=== PATIENT | female | born 1955 | race Caucasian/White ===

== ENCOUNTER 2016-12-19 07:33 | Inpatient (IN) | payer OTHER ==
[2016-11-13 14:51] VITALS: BMI 35.0
--- NOTE | 2016-11-13 15:35 | PAT Medication Instructions ---
Service Date Nov 13, 2016. Current Home Medication List Amitriptyline Hcl (Elavil), 50 MG PO HS Cholecalciferol (Vitamin D3), 1 TAB PO BID Diclofenac (Voltaren), 75 MG PO BID Eletriptan (Relpax), 40 MG PO DIRECTED Famotidine (Pepcid), 40 MG PO HS Lovastatin (Mevacor), 10 MG PO HS Montelukast Sodium (Montelukast Sodium), 1 TAB PO HS Omeprazole (Prilosec), 40 MG PO QAM [Melatonin], 50 MG PO HS [Nasonex [place]], 2 SPRAYS YONG PRN Medication Instructions For Your Scheduled Surgery Eletriptan (Relpax), 40 MG PO DIRECTED (only takes with migraines) - Hold the following medications 7-10 days prior to surgery per surgeon instructions: Diclofenac (Voltaren), 75 MG PO BID - Hold the following medications the morning of surgery: Cholecalciferol (Vitamin D3), 1 TAB PO BID - Take the following medications the morning of surgery with a sip of water: Nasonex [place] 2 SPRAYS YONG PRN Omeprazole (Prilosec), 40 MG PO QAM - Take the following medications as scheduled the night before surgery: Melatonin 50 MG PO HS Nasonex [place] 2 SPRAYS YONG PRN Montelukast Sodium (Montelukast Sodium), 1 TAB PO HS Lovastatin (Mevacor), 10 MG PO HS Famotidine (Pepcid), 40 MG PO HS Amitriptyline Hcl (Elavil), 50 MG PO HS If you have any questions please call us at [phone] or [phone] ( Carla) or [phone]
--- NOTE | 2016-11-13 16:02 | DIAGNOSTIC IMAGING REPORT ---
CHEST PREADMISSION(PA/LAT) CLINICAL HISTORY: Preoperative chest. Degenerative arthritis. Smoker. Cough. COMPARISON STUDY: No previous studies for comparison. FINDINGS: The cardiac and mediastinal contours are normal. There is no evidence of focal pulmonary consolidation. There is no evidence of failure. No pleural effusions are visualized.[ IMPRESSION: No active disease in the chest. Electronically signed by: Hayden Savage M.D. 11/13/2016 4:01 PM
[2016-11-13 16:35] LABS: BASO % 0.5 %; BASO ABS # 0.05 K/uL (0-0.2); COMPLETE YES; EOS % 4.3 %; HEMATOCRIT 43.9 % (37-47); IG% 0.2 %; LYMPH % 31.2 %; LYMPH ABS # 2.92 K/uL (1.2-3.4); MEAN CELL VOLUME 90.3 fL (80-100); MEAN CORPUSCULAR HEMOGLOBIN 30.2 pg (25-34); MEAN CORPUSCULAR HGB CONC 33.5 g/dl (32-36); MEAN PLATELET VOLUME 10.7 fL (7.4-10.4); MONO % 6.8 %; PLATELET COUNT 414 K/uL (130-400); RED BLOOD COUNT 4.86 M/uL (4.2-5.4); WHITE BLOOD COUNT 9.37 K/uL (4.8-10.8)
[2016-11-13 16:43] LABS: URINE APPEARANCE CLEAR (CLEAR); URINE BILIRUBIN NEG (NEG); URINE COLOR DK YELLOW; URINE EPITHELIAL CELL AUTO >30 /lpf (0-5); URINE NITRITE NEG (NEG); URINE PH 5.5 (4.5-7.5); URINE SPECIFIC GRAVITY 1.019 (1.000-1.030); UROBILINOGEN NEG (NEG); ZZUR CULT IF INDIC CLEAN CATCH NO
[2016-11-13 16:46] LABS: MANUAL MICROSCOPIC REQUIRED? NO; REVIEW REQ? NO
[2016-11-13 16:49] LABS: PARTIAL THROMBOPLASTIN RATIO 1.3; PROTHROMBIN TIME (PATIENT) 10.6 SECONDS (9.0-12.0)
[2016-11-13 16:57] LABS: BUN/CREATININE RATIO 19.5 (10-20); CREATININE 0.99 mg/dl (0.60-1.20); POTASSIUM 3.7 mmol/L (3.5-5.1)
[2016-11-14 05:57] LABS: ESTIMATED AVERAGE GLUCOSE 134 mg/dl; HA1C FLAG Normal (Normal)
--- NOTE | 2016-12-18 13:38 | HISTORY & PHYSICAL EXAMINATION ---
DATE OF ADMISSION: 12/19/2016 CHIEF COMPLAINT: Chronic right knee pain. HISTORY OF PRESENT ILLNESS: This is a 61-year-old female patient of Dr. Felix, complaining of chronic right knee pain, longstanding, now progressively getting worse. The patient has failed conservative treatment including anti-inflammatories and intraarticular injections. She has also used a brace for a number of months. She has been diagnosed with end-stage osteoarthritis per clinical and radiographic exams. The patient has increased pain with weightbearing activities and her pain does interfere with her activities of daily living. PAST MEDICAL HISTORY: COPD, snoring with no history of sleep apnea, osteoarthritis, obesity, and dental issues. SOCIAL HISTORY: A pack per day smoker for 45 years. No alcohol use. PAST SURGICAL HISTORY: Tubal ligation, carpal tunnel syndrome, back surgeries and tonsillectomy. FAMILY HISTORY: Noncontributory. REVIEW OF SYSTEMS: The patient complains of chronic right knee pain. Otherwise, denies any shortness of breath, chest pain, nausea, vomiting or any other joint complaints. MEDICATIONS: Diclofenac 75 mg daily, amitriptyline 50 mg at bedtime, lovastatin 10 mg at bedtime, montelukast 10 mg at bedtime, melatonin 50 mg at bedtime, vitamin D 1000 mg b.i.d., Nasonex spray as needed daily, Zantac daily, omeprazole 40 mg daily, and famotidine 40 mg at bedtime. ALLERGIES: INCLUDE AUGMENTIN AND CODEINE, WHICH CAUSE NAUSEOUSNESS. PHYSICAL EXAMINATION: GENERAL: Well-developed and well-nourished 61-year-old female in no acute distress. She is alert and oriented x3 and pleasant. HEENT: Normocephalic and atraumatic. Extraocular motions are intact. Pupils are equal and reactive to light. HEART: Regular rate and rhythm. No murmurs appreciated. LUNGS: Clear. ABDOMEN: Soft and nontender. Bowel sounds present. EXTREMITIES: Right knee reveals a mild effusion with medial joint line tenderness. She has a varus deformity and limited range of motion of 0-120 degrees. She has 5/5 strength. NEUROLOGIC: Neurovascularly, she is intact in her right lower extremity. DIAGNOSES: Right knee end-stage osteoarthritis, chronic obstructive pulmonary disease, and snoring with no history of sleep apnea, osteoarthritis, obesity and dental issues. PLAN: The patient was advised of her diagnoses. Indications, risks, benefits, and postop course have all been reviewed. The patient wishes to proceed with an elective right total knee arthroplasty. Necessary consent forms, preoperative testing and clearances will be obtained.
[~2016-12-19] VITALS: Ht 165.1 cm; Wt 97.8 kg
[2016-12-19] MEDS: TRANEXAMIC ACID INJ 1,000 MG in SODIUM CHLORIDE 0.9% 100ML 100 ML IV SCH ×2 (06:30→11:46)
[~2016-12-19 07:33] MED LIST: ACETAMINOPHEN 500 MG TAB PO SCH; AMT50 PO; BUPIVACAINE 0.5 % 5 MG/1 ML PF 10ML VIAL ONE; CHOL1000 PO; CeleBREX 200 MG CAP PO SCH; DEXAMETHASONE 4 MG TAB PO SCH; DICL-201 PO; ELET40TA PO; FAMO40TA6 PO; FAMOTIDINE 20 MG TAB PO SCH; GABAPENTIN 300 MG CAP PO SCH; LACTATED RINGER'S 1000ML 1,000 ML IV SCH; LACTATED RINGER'S 1000ML IV SCH; LACTATED RINGER'S 500 ML IV SCH; LOVA10TA3 PO; MELA3TAB7 PO; METOCLOPRAMIDE HCL 10 MG TAB PO SCH; MONT1TAB5 PO; NASONEX SPRAY NAE; OMEP40CA PO; ROPIVACAINE 5MG/ML 30 ML 150 MG, BUPIVACAINE/EPINEPHR 0.5% MPF 30 ML, KETOROLAC TROMETH... INFIL SCH
[2016-12-19] MEDS: VANCOMYCIN INJ 1,500 MG in SODIUM CHLORIDE 0.9% 500ML 500 ML IV SCH ×2 (08:02→11:42)
[2016-12-19 08:05] VITALS: BP 135/87; PULSE 105; TEMP 36.9; O2SAT 93; Ht 165.1 cm; Wt 97.8 kg
--- NOTE | 2016-12-19 08:59 | History & Physical Bridge Note ---
H&P Re-Evaluation Bridge Note: I have examined the patient, reviewed the History & Physical and in the interval since the performance of the History & Physical I have noted the following changes of clinical significance: No changes noted
[2016-12-19] MEDS ORDERED: MIDAZOLAM HCL 1 MG/ML 2ML VIAL ONE ×2 (10:17→13:28)
[2016-12-19] MEDS ORDERED: FENTANYL CITRATE INJ 50 MCG/1 ML 2 ML VIAL ONE (10:17)
[2016-12-19] MEDS ORDERED: ORTHO JOINT ANESTHETIC ONE (11:16)
[2016-12-19] MEDS ORDERED: PHENYLEPHRINE 100MCG/ML 5ML SYR ONE (13:05)
[2016-12-19] MEDS ORDERED: ESMOLOL HCL 10 MG/ML 10 ML VIAL ONE (13:05)
[2016-12-19] MEDS ORDERED: ONDANSETRON INJ 2 MG/ML 2 ML VIAL IV PRN ×2 (13:15→14:30)
[2016-12-19] MEDS ORDERED: FENTANYL CITRATE INJ 50 MCG/1 ML 2 ML VIAL IV PRN (13:15)
[2016-12-19] MEDS ORDERED: EpHEDrine SULFATE INJ 50 MG/ML AMP IV PRN (13:15)
[2016-12-19] MEDS ORDERED: ATROPINE SULFATE 0.1 MG/ML 5ML SYR IV PRN (13:15)
[2016-12-19] MEDS ORDERED: POVIDONE-IODINE OP SOLN 30 ML BTL TOP ONE (13:43)
[2016-12-19] MEDS ORDERED: BACITRACIN 50000 UNIT VIAL IR ONE (13:50)
--- NOTE | 2016-12-19 13:53 | [facility] Operative Report ---
Operative Report Operative Date Dec 19, 2016. Pre-Operative Diagnosis Right Knee, End Stage Osteoarthritis Post-Operative Diagnosis same Procedure(s) Performed right total knee replacement Surgeon Dr. Graham Felix Item Processor Surgeon(s) Gómez Rodriguez PA-C Estimated Blood Loss 5ml Findings varus grade 4 medial and lateral patellar djd Specimens A.) Right Knee Bone and Tissue Fragments Drains 2 HV Anesthesia spinal sedation and regional and orthomix Complication(s) None Disposition Recovery Room / PACU Indications end stage djd bilateral staged tka I attest to the content of the Intraoperative Record and any orders documented therein. Any exceptions are noted below.
[2016-12-19] MEDS ORDERED: DiphenhydrAMINE HCL 50 MG/ML VIAL IV PRN (14:30)
[2016-12-19] MEDS ORDERED: MAGNESIUM HYDROXIDE SUSP 30 ML UDC PO PRN (14:30)
[2016-12-19] MEDS ORDERED: ALUMINUM/MAGNESIUM/SIMETH (MAALOX MAX) 30 ML UDC PO PRN (14:30)
[2016-12-19] MEDS ORDERED: ZOLPIDEM TARTRATE 5 MG TAB PO PRN (14:30)
[2016-12-19] MEDS ORDERED: BISACODYL 10 MG SUPP PR PRN (14:30)
--- NOTE | 2016-12-19 14:35 | Anesthesiology Progress Note ---
Anesthesia Post Op Note Date & Time Dec 19, 2016 at 14:35 Vital Signs Pain Intensity: 0 Vital Signs Past 12 Hours Date Time Temp Pulse Resp B/P Pulse Ox O2 Delivery O2 Flow Rate FiO2 12/19/16 14:20 Nasal Cannula 3 12/19/16 14:10 36.6 110 16 120/63 97 Mask 10 12/19/16 08:05 36.9 105 20 135/87 93 Room Air Notes Mental Status: alert / awake / arousable, participated in evaluation Pt Amnestic to Procedure: Yes Nausea / Vomiting: adequately controlled Pain: adequately controlled Airway Patency, RR, SpO2: stable & adequate BP & HR: stable & adequate Hydration State: stable & adequate Neuraxial Anesthesia: was administered, sensory block is resolving Anesthetic Complications: no major complications apparent
--- NOTE | 2016-12-19 15:13 | DIAGNOSTIC IMAGING REPORT ---
RIGHT KNEE 1 OR 2 VIEWS ROUTINE CLINICAL HISTORY: Postoperative evaluation. COMPARISON: None FINDINGS: Alignment of the total right knee arthroplasty is anatomic. There is no fracture or unexpected radiopaque foreign body. Drains and skin chrystal are present. IMPRESSION: Expected findings following total right knee arthroplasty. Electronically signed by: Anthony Scott M.D. 12/19/2016 3:11 PM Dictated Date/Time: 12/19/2016 3:11 PM
[2016-12-19 15:40] VITALS: BP 127/78; PULSE 106; TEMP 36.4; O2SAT 95
[2016-12-19] MEDS ORDERED: MoRPHine SULFATE 4 MG/ML 1 ML CARP\\VIAL IV PRN (16:00)
[2016-12-19] MEDS ORDERED: MoRPHine SULFATE 10 MG/ML CARP/VIAL IV PRN (16:00)
[2016-12-19 16:08] VITALS: BP 153/90; PULSE 104; TEMP 36.6; O2SAT 96
[2016-12-19] MEDS: D5W AND 1/2NSS + 20MEQ KCL 1,000 ML IV SCH (16:26)
[2016-12-19 16:42] VITALS: BP 133/82; PULSE 96; TEMP 36.5; O2SAT 96
[2016-12-19] MEDS: FERROUS GLUCONATE 324 MG TAB PO SCH (17:53)
[2016-12-19] MEDS: KETOROLAC TROMETHAMINE 30 MG/ML VIAL IV. SCH ×2 (17:54→23:46)
[2016-12-19 18:40] VITALS: BP 162/81; PULSE 105; TEMP 36.7; O2SAT 92
--- NOTE | 2016-12-19 20:11 | Medical Consult ---
Consultation Date of Consultation: Dec 19, 2016. Attending Physician: Graham Felix M.D. Reason for Consultation: Medical management History of Present Illness 61 yo female s/p right TKA today by Dr. Felix. No complications, minimal blood loss. Had been dealing with chronic right knee pain for some time, failed conservative therapy. Has a medical history of COPD but she only uses a rescue inhaler and hardly ever needs it. She denies reflux. Admits to high cholesterol but it is well controlled on statin. Overall she feels quite well after surgery, right knee pain is minimal at the time and she has come off her oxygen. Eating well. Past Medical/Surgical History PAST MEDICAL HISTORY: COPD, snoring with no history of sleep apnea, osteoarthritis, obesity, GERD, hyperlipidemia PAST SURGICAL HISTORY: Tubal ligation, carpal tunnel syndrome, back surgeries and tonsillectomy. Family History Mother: DM, CAD with CABG Father: CAD with CABG Social History Smoking Status: Current Every Day Smoker Allergies Coded Allergies: Amoxicillin (Verified Adverse Reaction, Unknown, NAUSEA, 12/19/16) Clavulanic Acid (Verified Adverse Reaction, Unknown, NAUSEA, 12/19/16) Codeine (Verified Adverse Reaction, Unknown, NAUSEA, 12/19/16) Home Medications MEDICATIONS: Diclofenac 75 mg daily, amitriptyline 50 mg at bedtime, lovastatin 10 mg at bedtime, montelukast 10 mg at bedtime, melatonin 50 mg at bedtime, vitamin D 1000 mg b.i.d., Nasonex spray as needed daily, Zantac daily, omeprazole 40 mg daily, and famotidine 40 mg at bedtime. Current Inpatient Medications Current Inpatient Medications Medications (Trade) Dose Ordered Sig/Hillary Route Start Time Stop Time Status Last Admin Dose Admin Lactated Ringer's 1,000 ml @ 60 mls/hr [id number] IV 12/19/16 06:00 12/19/16 22:39 Lactated Ringer's (Lr 1000ml) 1,000 ml @ 15 mls/hr Q24H IV 12/19/16 06:00 12/20/16 05:59 12/19/16 07:58 15 MLS/HR Amitriptyline HCl (Elavil Tab) 50 mg HS PO 12/19/16 21:00 01/18/17 20:59 Cholecalciferol (Vitamin D Tab) 1,000 inter.unit BID PO 12/19/16 21:00 01/18/17 20:59 Montelukast Sodium (Singulair Tab) 10 mg HS PO 12/19/16 21:00 01/18/17 20:59 Miscellaneous Information (Order Awaiting Action) 1 ea QS N/A 12/19/16 16:00 01/18/17 15:59 Lovastatin (Mevacor Tab) 10 mg PM PO 12/19/16 21:00 01/18/17 20:59 Pantoprazole Sodium (Protonix Tab) 40 mg QAM PO 12/20/16 09:00 01/19/17 08:59 Fluticasone Propionate (Flonase Nasal [place]) 2 sprays DAILY PRN NA 12/20/16 09:00 01/19/17 08:59 Morphine Sulfate 2 mg 2 mg Q4HWA PRN IV 12/19/16 14:30 01/02/17 14:29 Potassium Chloride/Dextrose/ Sod Cl 1,000 ml @ 100 mls/hr Q10H IV 12/19/16 16:15 12/20/16 14:15 12/19/16 16:26 100 MLS/HR Vancomycin HCl/ Sodium Chloride (Vancomycin Inj/ Nss 500ml) 530 ml @ 195 mls/hr TODAY@2300 IV 12/19/16 23:00 12/20/16 01:44 Ketorolac Tromethamine (Toradol Inj) 30 mg Q6H IV. 12/19/16 18:00 12/20/16 12:01 12/19/16 17:54 30 MG Oxycodone HCl (Roxicodone Immediate Rel Tab) 1 TABLET FOR PAIN RATING... Q4H PRN PO 12/19/16 14:30 01/02/17 14:29 Oxycodone HCl (Oxycontin Tab) 10 mg Q12 PO 12/19/16 21:00 01/02/17 20:59 Acetaminophen (Tylenol Tab) 1,000 mg Q8H PO 12/19/16 22:00 01/18/17 14:29 Magnesium Hydroxide (Milk Of Magnesia Susp) 30 ml Q6H PRN PO 12/19/16 14:30 01/18/17 14:29 Bisacodyl (Dulcolax Supp) 10 mg DAILY PRN MT 12/19/16 14:30 01/18/17 14:29 Senna (Senokot Tab) 17.2 mg HS PO 12/19/16 21:00 01/18/17 20:59 Docusate Sodium (coLACE CAP) 100 mg BID PO 12/19/16 21:00 01/18/17 20:59 Diphenhydramine HCl (Benadryl Inj) 25 mg Q8H PRN IV 12/19/16 14:30 01/18/17 14:29 Al Hydrox/Mg Hydrox/Simethicone (Maalox Max Susp) 15 ml Q4H PRN PO 12/19/16 14:30 01/18/17 14:29 Zolpidem Tartrate (Ambien Tab) 5 mg HSZ PRN PO 12/19/16 14:30 01/18/17 14:29 Multivitamins (Multivitamin Tab) 1 tab QAM PO 12/20/16 09:00 01/19/17 08:59 Ondansetron HCl (Zofran Inj) 4 mg Q6H PRN IV 12/19/16 14:30 01/18/17 14:29 Ferrous Gluconate (Ferrous Gluconate Tab) 324 mg TIDM PO 12/19/16 17:45 01/18/17 17:59 12/19/16 17:53 324 MG Aspirin (Ecotrin Tab) 81 mg BID PO 12/19/16 21:00 01/18/17 20:59 Morphine Sulfate (MoRPHine SULFATE INJ) 4 mg Q4HWA PRN IV 12/19/16 16:00 01/02/17 15:59 Morphine Sulfate (MoRPHine SULFATE INJ) 6 mg Q4HWA PRN IV 12/19/16 16:00 01/02/17 15:59 Review of Systems Constitutional: No chills, No fatigue, No fever, No problem reported, No sweats , No weakness, No weight loss Eyes: No diplopia, No discharge, No eye pain, No problem reported, No redness, No worsening of vision ENT: No dental problems, No hearing loss, No nasal symptoms, No problem reported, No sore throat, No tinnitus, No trouble swallowing, No unusual epistaxis Respiratory: No cough, No dyspnea at rest, No dyspnea on exertion, No hemoptysis, No problem reported, No shortness of breath, No sputum, No wheezing Cardiovascular: No PND, No chest pain, No claudication, No edema, No orthopnea , No palpitations, No problem reported Abdomen: No GI bleeding, No constipation, No diarrhea, No nausea, No pain, No problem reported, No vomiting Musculoskeletal: + joint pain (right knee), No calf pain, No muscle pain, No problem reported, No swelling Genitourinary - Female: No dysuria, No urinary frequency, No urinary incontinence, No urinary urgency Neurologic: No balance problems, No memory loss, No numbness/tingling, No paralysis, No problem reported, No vertigo, No weakness Psychiatric: No anhedonism, No anxiety, No depression symptoms, No insomnia, No problem reported, No substance abuse Endocrine: No excessive thirst, No excessive urination, No fatigue, No problem reported Hematologic / Lymphatic: No abnormal bleeding/bruising, No clotting problems, No night sweats, No problem reported, No swollen lymph nodes Integumentary: No bleeding, No color change, No itch, No new/changing skin lesions, No problem reported, No rash Allergic / Immunologic: No environmental allergies, No food allergies, No frequent infections, No hives, No pet sensitivities, No poor healing, No problem reported, No prolonged convalescence, No seasonal allergies Physical Exam Date Time Temp Pulse Resp B/P Pulse Ox O2 Delivery O2 Flow Rate FiO2 12/19/16 18:40 36.7 105 18 162/81 92 Room Air 12/19/16 16:42 36.5 96 18 133/82 96 Nasal Cannula 3.0 12/19/16 16:41 18 12/19/16 16:08 36.6 104 18 153/90 96 Nasal Cannula 3.0 12/19/16 16:00 Nasal Cannula 2.0 12/19/16 16:00 Nasal Cannula 2.0 12/19/16 15:40 36.4 106 18 127/78 95 12/19/16 15:30 36.7 107 16 124/79 95 Nasal Cannula 3 12/19/16 15:29 124/79 12/19/16 15:27 114 18 92 12/19/16 15:27 112 18 12/19/16 15:22 108 19 12/19/16 15:22 107 19 93 12/19/16 15:17 108 19 12/19/16 15:17 108 19 97 12/19/16 15:13 143/77 12/19/16 15:12 106 18 12/19/16 15:12 105 18 95 12/19/16 15:07 109 17 92 12/19/16 15:07 109 17 12/19/16 15:04 124/78 12/19/16 15:02 109 16 92 12/19/16 15:02 110 16 12/19/16 15:01 106 18 93 12/19/16 15:01 106 18 12/19/16 14:58 122/87 12/19/16 14:56 105 17 12/19/16 14:56 105 17 94 12/19/16 14:53 134/82 12/19/16 14:51 110 18 12/19/16 14:51 108 18 94 12/19/16 14:48 143/88 12/19/16 14:46 110 17 93 12/19/16 14:46 110 17 12/19/16 14:43 129/81 12/19/16 14:41 115 19 12/19/16 14:41 121 19 91 12/19/16 14:40 36.5 12/19/16 14:35 107 17 93 12/19/16 14:35 109 17 12/19/16 14:33 123/77 12/19/16 14:30 105 19 96 12/19/16 14:30 106 19 12/19/16 14:28 152/69 12/19/16 14:25 105 21 96 12/19/16 14:25 106 21 12/19/16 14:23 131/72 12/19/16 14:20 114 20 93 12/19/16 14:20 Nasal Cannula 3 12/19/16 14:20 114 20 12/19/16 14:18 123/67 12/19/16 14:15 109 23 98 12/19/16 14:15 109 23 12/19/16 14:13 119/64 12/19/16 14:11 120/63 12/19/16 14:10 115 12/19/16 14:10 115 94 12/19/16 14:10 36.6 110 16 120/63 97 Mask 10 12/19/16 08:05 36.9 105 20 135/87 93 Room Air General Appearance: no apparent distress, + obese Head: normocephalic, atraumatic Eyes: normal inspection, EOMI, sclerae normal ENT: normal ENT inspection, hearing grossly normal, pharynx normal Neck: supple, no adenopathy, no JVD, trachea midline Respiratory/Chest: chest non-tender, lungs clear, normal breath sounds, no respiratory distress, no accessory muscle use Cardiovascular: regular rate, rhythm, no edema, no gallop, no JVD, no murmur, normal peripheral pulses Abdomen/GI: normal bowel sounds, non tender, soft, no organomegaly Back: normal inspection, no CVA tenderness, no muscle spasm, normal range of motion Extremities/Musculoskelatal: no calf tenderness, normal capillary refill, no pedal edema, + pertinent finding (right knee tender, immobilized) 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 Felix - s/p right TKA: pain control, DVT prophylaxis, activity level and d/c planning per orthopedics encouraged use of incentive spirometer to open up atelectactic areas and improve oxygenation monitor for return of bowel function, stay hydrated, active - COPD: lungs clear, does not use inhalers, can use nebulizers if needed while hospitalized - GERD: continue PPI and H2 abdoulaye - Hyperlipidemia; statin therapy check labs in the AM, if labs and vitals stable, should sign off tomorrow
[2016-12-19] MEDS: LOVASTATIN 20 MG TAB PO SCH (20:47)
[2016-12-19] MEDS: AMITRIPTYLINE HCL 50 MG TAB PO SCH (20:47)
[2016-12-19] MEDS: ASPIRIN 81 MG ECTAB PO SCH (20:47)
[2016-12-19] MEDS: DOCUSATE SODIUM 100 MG CAP PO SCH (20:47)
[2016-12-19] MEDS: SENNA 8.6 MG TAB PO SCH (20:47)
[2016-12-19] MEDS: OXYCODONE HCL 10 MG TABCR (OXYCONTIN) PO SCH (20:47)
[2016-12-19] MEDS: CHOLECALCIFEROL 1000 INTER.UNIT TAB PO SCH (20:47)
[2016-12-19] MEDS: MONTELUKAST SOD 10 MG TAB PO SCH (20:47)
[2016-12-19] MEDS: NICOTINE 14 MG/24 HR TDSY TD SCH (21:20)
[2016-12-19] MEDS: ACETAMINOPHEN 500 MG TAB PO SCH (21:41)
[2016-12-19] MEDS ORDERED: VANCOMYCIN INJ 1,500 MG in SODIUM CHLORIDE 0.9% 500ML 500 ML IV SCH (23:00)
[2016-12-20] VITALS (7 sets, daily range): BP systolic 121–151; BP diastolic 62–85; PULSE 71–94; TEMP 36.5–36.8; O2SAT 92–97
--- NOTE | 2016-12-20 01:02 | OPERATIVE REPORT ---
DATE OF OPERATION: 12/19/2016 INDICATION FOR PROCEDURE: The patient is a 61-year-old female with progressive bilateral knee osteoarthritis. She has failed all conservative management. Radiographs demonstrate [id number] medial compartment both knees but have some tricompartmental findings. The patient wants to proceed with a right knee replacement at this time. PREOPERATIVE DIAGNOSIS: End-stage osteoarthritis, right knee. POSTOPERATIVE DIAGNOSIS: Same. PROCEDURE: Right total knee arthroplasty. SURGEON: Dr. Felix. FRONT END ARCHITECT: JAKY Lambert. ANESTHESIA: Spinal IV sedation, regional block and Ortho mix. OPERATIVE PROCEDURE: The patient taken to the operating room, anesthetized under anesthesia as dictated. Pneumatic tourniquet was placed about her right upper thigh. Right lower extremity was examined. She had no pseudolaxity, a varus knee and a tight medial compartment. She had some laxity of her LCL. The right lower extremity was sterilely prepped and draped with ChloraPrep. The leg was elevated, exsanguinated with Esmarch bandage, pneumatic tourniquet was raised to 300 mmHg. Anterior incision was then made across the knee. Skin was incised sharply. Subcutaneous flaps were elevated. Incision was made through medial retinaculum, extended up in the mid third of the quadriceps tendon and extended down to the medial tibial tubercle. Intraarticular findings demonstrate she had grade 4 [id number] medial compartment. She had 5 mm round grade 4 lesion on the lateral femoral condyle and she had a deep fissure in central patella with grade 3 wear in the central patella. I used the Beebe \T\ Nephew Journey 2.0 total knee arthroplasty system using [employer] MRI templating, templating her femur for a size 6 femur and a 4 tibia. To expose the knee, the infrapatellar fat pad and fat pad over the anterior femur were resected. Lateral synovial bands were released. The menisci were resected, the crucial ligaments were resected. We had to do subperiosteal releases around the medial and posteromedial tibial plateau to balance the ligaments. The lateral synovial bands were released. The custom femoral cutting block was pinned in position and the distal femoral cut was made. Anterior, posterior and chamfer cuts were made. A 5-in-1 cutting block was used. The knee was extended and a subperiosteal peel lateral release was performed around the patella. The patella width was measured and width was reproduced using a freehand cut technique and a 35 patella component. The drill holes were made for the component and any excess lateral facet was beveled off to prevent any impingement. The tibia was then subluxed and the custom tibial cutting block was pinned in position and proximal tibial cut was made. Lamina video intern was used to assess ligamentous balance, it was nearly balanced but it seemed like there was some tightness of the MCL. The tibia was then exposed and the 4 tibial baseplate was externally rotated, pinned in position, and the punch for the stem was used. 6 femoral trial was inserted, centered, and the notch cutting devices were used and a collet was placed. We did trials and it was felt that there was still some relative increased laxity laterally compared to medially, so we went ahead and placed a lamina video intern between the components and did some pie crusting at the MCL to get a better balance of ligaments. This enabled us to place a [address] which had complete balanced ligaments through full range of motion and the patella tracked centrally. The trials were removed and the Orthomix was injected per protocol. The knee was copiously irrigated with pulsatile lavage antibiotic solution and bacitracin. The final components were cemented with Simplex G cement. The final components were the 6 Oxinium posterior stabilized Beebe \T\ Nephew Journey 2.0 femur, the 4 tibial baseplate, 13 polyethylene posterior stabilized insert was used and the 35 mm patella was used. While cement cured, Betadine soak was used per protocol. The knee was again copiously irrigated with antibiotic solution and bacitracin. Two drains were brought out laterally and connected to a Hemovac. Quadriceps tendon and medial retinaculum were closed with interrupted [id number] #1 Vicryl sutures. The knee was taken through full range of motion and repair was secure. The subcutaneous tissue was then repaired with interrupted 2-0 Vicryl. Skin was closed with chrystal. Sterile dressings were applied and an occlusive dressing. The tourniquet was let down, the patient tolerated the procedure well. JAKY Lambert, was my urology physician assistant. He functioned as urology physician assistant for the entire procedure. He assisted in patient positioning, prepping, draping, leg positioning, instrument management, soft tissue retraction, and performed the fascial, subcutaneous and skin closure, and will participate in postoperative care of the patient. I attest to the content of the Intraoperative Record and any orders documented therein. Any exceptio ns are noted below.
[2016-12-20] MEDS: D5W AND 1/2NSS + 20MEQ KCL 1,000 ML IV SCH ×2 (04:45→12:15)
[2016-12-20] MEDS: KETOROLAC TROMETHAMINE 30 MG/ML VIAL IV. SCH ×2 (05:57→13:39)
[2016-12-20] MEDS: ACETAMINOPHEN 500 MG TAB PO SCH ×3 (05:57→22:03)
[2016-12-20 06:58] LABS: HEMATOCRIT 38.5 % (37-47); MEAN CELL VOLUME 88.3 fL (80-100); MEAN CORPUSCULAR HEMOGLOBIN 28.9 pg (25-34); MEAN CORPUSCULAR HGB CONC 32.7 g/dl (32-36); MEAN PLATELET VOLUME 10.4 fL (7.4-10.4); PLATELET COUNT 440 K/uL (130-400); RED BLOOD COUNT 4.36 M/uL (4.2-5.4); WHITE BLOOD COUNT 22.81 K/uL (4.8-10.8)
[2016-12-20 07:24] LABS: BUN/CREATININE RATIO 18.7 (10-20); CALCIUM 8.8 mg/dl (8.5-10.1); CREATININE 0.86 mg/dl (0.60-1.20); POTASSIUM 4.2 mmol/L (3.5-5.1)
--- NOTE | 2016-12-20 07:55 | Orthopedic Progress Note ---
Orthopedic Progress Note Date of Service Dec 20, 2016. Subjective Post OP Day: 1 Reports: feeling well, pain controlled w PO medications, Denies: SOB, calf pain , chest pain, complaints, light headedness, nausea / vomiting Objective calves soft nontender, N/V intact, capillary refill less than 2 sec., dressing C /D/I, A&O x3, toes mobile Date Time Temp Pulse Resp B/P Pulse Ox O2 Delivery O2 Flow Rate FiO2 12/20/16 07:46 36.5 81 19 151/85 93 Room Air 12/20/16 04:24 36.5 93 18 131/77 93 Room Air 12/20/16 00:06 36.5 82 16 144/78 97 Room Air 12/19/16 23:45 Room Air 12/19/16 18:40 36.7 105 18 162/81 92 Room Air 12/19/16 16:42 36.5 96 18 133/82 96 Nasal Cannula 3.0 12/19/16 16:41 18 12/19/16 16:08 36.6 104 18 153/90 96 Nasal Cannula 3.0 12/19/16 16:00 Nasal Cannula 2.0 12/19/16 16:00 Nasal Cannula 2.0 12/19/16 15:40 36.4 106 18 127/78 95 12/19/16 15:30 36.7 107 16 124/79 95 Nasal Cannula 3 12/19/16 15:29 124/79 12/19/16 15:27 114 18 92 12/19/16 15:27 112 18 12/19/16 15:22 108 19 12/19/16 15:22 107 19 93 12/19/16 15:17 108 19 12/19/16 15:17 108 19 97 12/19/16 15:13 143/77 12/19/16 15:12 106 18 12/19/16 15:12 105 18 95 12/19/16 15:07 109 17 92 12/19/16 15:07 109 17 12/19/16 15:04 124/78 12/19/16 15:02 109 16 92 12/19/16 15:02 110 16 12/19/16 15:01 106 18 93 12/19/16 15:01 106 18 12/19/16 14:58 122/87 12/19/16 14:56 105 17 12/19/16 14:56 105 17 94 12/19/16 14:53 134/82 12/19/16 14:51 110 18 12/19/16 14:51 108 18 94 12/19/16 14:48 143/88 12/19/16 14:46 110 17 93 12/19/16 14:46 110 17 12/19/16 14:43 129/81 12/19/16 14:41 115 19 12/19/16 14:41 121 19 91 12/19/16 14:40 36.5 12/19/16 14:35 107 17 93 12/19/16 14:35 109 17 12/19/16 14:33 123/77 12/19/16 14:30 105 19 96 12/19/16 14:30 106 19 12/19/16 14:28 152/69 12/19/16 14:25 105 21 96 12/19/16 14:25 106 21 12/19/16 14:23 131/72 12/19/16 14:20 114 20 93 12/19/16 14:20 Nasal Cannula 3 12/19/16 14:20 114 20 12/19/16 14:18 123/67 12/19/16 14:15 109 23 98 12/19/16 14:15 109 23 12/19/16 14:13 119/64 12/19/16 14:11 120/63 12/19/16 14:10 115 12/19/16 14:10 115 94 12/19/16 14:10 36.6 110 16 120/63 97 Mask 10 12/19/16 08:05 36.9 105 20 135/87 93 Room Air Laboratory Results 24 Hours: Test 12/20/16 05:45 Hematocrit 38.5 % Hemoglobin 12.6 g/dL Assessment & Plan Assessment: POD #1, Rt TKA Plan: PT/ OT DVT proph- ASA D/C planning- Home w OPPT As per medicine Inhouse Planning Pain Management: Toradol, Oxycontin, Morphine, PO Tylenol, Oxy IR DVT Prophylaxis: TEDs, SCDs, ASA Discharge Planning Discharge Planning: home with oppt Pain Management: Oxycontin, PO Tylenol, Oxy IR DVT Prophylaxis: TEDs, ASA Therapy: Physical Therapy, Occupational Therapy
[2016-12-20] MEDS: MULTIVITAMIN TAB PO SCH (08:15)
[2016-12-20] MEDS: DOCUSATE SODIUM 100 MG CAP PO SCH ×2 (08:15→22:02)
[2016-12-20] MEDS: FERROUS GLUCONATE 324 MG TAB PO SCH ×3 (08:15→18:15)
[2016-12-20] MEDS: ASPIRIN 81 MG ECTAB PO SCH ×2 (08:16→22:02)
[2016-12-20] MEDS: PANTOprazole SOD 40 MG TAB PO SCH (08:16)
[2016-12-20] MEDS: CHOLECALCIFEROL 1000 INTER.UNIT TAB PO SCH ×2 (08:17→22:02)
[2016-12-20] MEDS: NICOTINE 14 MG/24 HR TDSY TD SCH (08:18)
[2016-12-20] MEDS: OXYCODONE HCL 10 MG TABCR (OXYCONTIN) PO SCH ×2 (08:23→20:38)
[2016-12-20] MEDS ORDERED: FLUTICASONE PROPIONATE NA SPR 16 GM BTL PRN (09:00)
--- NOTE | 2016-12-20 10:34 | Anesthesiology Progress Note ---
Anesthesia Post Op Note Date & Time Dec 20, 2016 at 10:34 Vital Signs Pain Intensity: 0.0 Vital Signs Past 12 Hours Date Time Temp Pulse Resp B/P Pulse Ox O2 Delivery O2 Flow Rate FiO2 12/20/16 07:46 36.5 81 19 151/85 93 Room Air 12/20/16 04:24 36.5 93 18 131/77 93 Room Air 12/20/16 00:06 36.5 82 16 144/78 97 Room Air 12/19/16 23:45 Room Air Notes Mental Status: alert / awake / arousable, participated in evaluation Pt Amnestic to Procedure: Yes Nausea / Vomiting: adequately controlled Pain: adequately controlled Airway Patency, RR, SpO2: stable & adequate BP & HR: stable & adequate Hydration State: stable & adequate Neuraxial Anesthesia: sensory block resolved Anesthetic Complications: no major complications apparent
--- NOTE | 2016-12-20 10:44 | Hospitalist Progress Note ---
Hospitalist Progress Note Date of Service Dec 20, 2016. (Leyda Thomas PA-C) Subjective Pt evaluation today including: conversation w/ patient, physical exam, chart review, lab review, review of inpatient medication list Patient reports minimal pain in the knee. She denies any nausea. Tolerating a diet. She has not yet passing gas or having bowel movements though. She denies any abdominal pain. She notes that she is typically constipated at home. She normally has bowel movements every 2-3 days. She denies any dizziness, chest pain, chest pressure or heart palpitations. Additional Comments: 6 system review negative. Please see pertinent positives in the history of present illness section. (Leyda Thomas PA-C) Objective Vital Signs Date Time Temp Pulse Resp B/P Pulse Ox O2 Delivery O2 Flow Rate FiO2 12/20/16 07:46 36.5 81 19 151/85 93 Room Air 12/20/16 04:24 36.5 93 18 131/77 93 Room Air 12/20/16 00:06 36.5 82 16 144/78 97 Room Air 12/19/16 23:45 Room Air 12/19/16 18:40 36.7 105 18 162/81 92 Room Air 12/19/16 16:42 36.5 96 18 133/82 96 Nasal Cannula 3.0 12/19/16 16:41 18 12/19/16 16:08 36.6 104 18 153/90 96 Nasal Cannula 3.0 12/19/16 16:00 Nasal Cannula 2.0 12/19/16 16:00 Nasal Cannula 2.0 12/19/16 15:40 36.4 106 18 127/78 95 12/19/16 15:30 36.7 107 16 124/79 95 Nasal Cannula 3 12/19/16 15:29 124/79 12/19/16 15:27 114 18 92 12/19/16 15:27 112 18 12/19/16 15:22 108 19 12/19/16 15:22 107 19 93 12/19/16 15:17 108 19 12/19/16 15:17 108 19 97 12/19/16 15:13 143/77 12/19/16 15:12 106 18 12/19/16 15:12 105 18 95 12/19/16 15:07 109 17 92 1/25/17 15:07 109 17 12/19/16 15:04 124/78 12/19/16 15:02 109 16 92 12/19/16 15:02 110 16 12/19/16 15:01 106 18 93 12/19/16 15:01 106 18 12/19/16 14:58 122/87 12/19/16 14:56 105 17 12/19/16 14:56 105 17 94 12/19/16 14:53 134/82 12/19/16 14:51 110 18 12/19/16 14:51 108 18 94 12/19/16 14:48 143/88 12/19/16 14:46 110 17 93 12/19/16 14:46 110 17 12/19/16 14:43 129/81 12/19/16 14:41 115 19 12/19/16 14:41 121 19 91 12/19/16 14:40 36.5 12/19/16 14:35 107 17 93 12/19/16 14:35 109 17 12/19/16 14:33 123/77 12/19/16 14:30 105 19 96 12/19/16 14:30 106 19 12/19/16 14:28 152/69 12/19/16 14:25 105 21 96 12/19/16 14:25 106 21 12/19/16 14:23 131/72 12/19/16 14:20 114 20 93 12/19/16 14:20 Nasal Cannula 3 12/19/16 14:20 114 20 12/19/16 14:18 123/67 12/19/16 14:15 109 23 98 12/19/16 14:15 109 23 12/19/16 14:13 119/64 12/19/16 14:11 120/63 12/19/16 14:10 115 12/19/16 14:10 115 94 12/19/16 14:10 36.6 110 16 120/63 97 Mask 10 (Leyda Thomas, JAKY-C) Physical Exam General Appearance: no apparent distress Neck: no JVD Respiratory/Chest: lungs clear Cardiovascular: regular rate, rhythm Abdomen: normal bowel sounds, non tender, soft Extremities: no pedal edema (no edema or erythema in the left lower extremity. Brace on the right lower extremity.) Neurologic/Psychiatric: no motor/sensory deficits, oriented x 3 Skin: warm/dry (Leyda Thomas PA-C) Laboratory Results Last 24 Hours Test 12/20/16 05:45 White Blood Count 22.81 K/uL Red Blood Count 4.36 M/uL Hemoglobin 12.6 g/dL Hematocrit 38.5 % Mean Corpuscular Volume 88.3 fL Mean Corpuscular Hemoglobin 28.9 pg Mean Corpuscular Hemoglobin Concent 32.7 g/dl RDW Standard Deviation 48.5 fL RDW Coefficient of Variation 15.1 % Platelet Count 440 K/uL Mean Platelet Volume 10.4 fL Sodium Level 139 mmol/L Potassium Level 4.2 mmol/L Chloride Level 107 mmol/L Carbon Dioxide Level 21 mmol/L Anion Gap 11.0 mmol/L Blood Urea Nitrogen 16 mg/dl Creatinine 0.86 mg/dl Est Creatinine Clear Calc Drug Dose 79.5 ml/min Estimated GFR () 84.5 Estimated GFR (Non- 72.9 BUN/Creatinine Ratio 18.7 Random Glucose 140 mg/dl Calcium Level 8.8 mg/dl (Leyda Thomas PA-C) Assessment and Plan 61 y/o female with a hx of COPD, tobacco abuse and chronic R knee pain s/p R TKA 12/20. R TKA -pain management, DVT prophylaxis, PT per primary team COPD-lungs clear O2 stable -Continue prn albuterol GERD -continue PPI Stable for D/C from a medical stand point. The medicine service will sign off. Please contact the [facility] for any further medical concerns. (Leyda Thomas PA-C) I agree with JAKY assessment and plan Pt s/p TKA Hemodynamically stable No concerns at this time Will sign off at this time (Biju Dunn D.O.)
[2016-12-20] MEDS: OXYCODONE HCL IR 5 MG TAB (IMMEDIATE RELEASE) PO PRN ×3 (10:51→23:36)
[2016-12-20] MEDS: MoRPHine SULFATE 2 MG/ML CARP IV PRN (13:40)
[2016-12-20] MEDS: SENNA 8.6 MG TAB PO SCH (22:02)
[2016-12-20] MEDS: AMITRIPTYLINE HCL 50 MG TAB PO SCH (22:02)
[2016-12-20] MEDS: MONTELUKAST SOD 10 MG TAB PO SCH (22:02)
[2016-12-20] MEDS: LOVASTATIN 20 MG TAB PO SCH (22:03)
[2016-12-21] MEDS: OXYCODONE HCL IR 5 MG TAB (IMMEDIATE RELEASE) PO PRN ×2 (04:35→09:46)
[2016-12-21] MEDS: ACETAMINOPHEN 500 MG TAB PO SCH (05:36)
[2016-12-21 06:28] VITALS: BP 149/71; PULSE 91; TEMP 36.7; O2SAT 94
[2016-12-21] MEDS: OXYCODONE HCL 10 MG TABCR (OXYCONTIN) PO SCH (07:30)
[2016-12-21] MEDS: FERROUS GLUCONATE 324 MG TAB PO SCH (07:30)
[2016-12-21] MEDS: DOCUSATE SODIUM 100 MG CAP PO SCH (07:30)
[2016-12-21] MEDS: ASPIRIN 81 MG ECTAB PO SCH (07:31)
[2016-12-21] MEDS: PANTOprazole SOD 40 MG TAB PO SCH (07:31)
[2016-12-21] MEDS: MULTIVITAMIN TAB PO SCH (07:31)
[2016-12-21] MEDS: CHOLECALCIFEROL 1000 INTER.UNIT TAB PO SCH (07:32)
[2016-12-21] MEDS: NICOTINE 14 MG/24 HR TDSY TD SCH (07:33)
[2016-12-21 07:51] VITALS: BP 149/71; PULSE 91; TEMP 36.7; O2SAT 94
[2016-12-21] MEDS: MoRPHine SULFATE 2 MG/ML CARP IV PRN (08:14)
--- NOTE | 2016-12-21 09:13 | Orthopedic Progress Note ---
Orthopedic Progress Note Date of Service Dec 21, 2016. Subjective Post OP Day: 2 Reports: feeling well, pain controlled w PO medications, Denies: SOB, calf pain , chest pain, complaints, light headedness, nausea / vomiting Objective calves soft nontender, N/V intact, capillary refill less than 2 sec., dressing C /D/I, A&O x3, toes mobile Silverlon in tact. Date Time Temp Pulse Resp B/P Pulse Ox O2 Delivery O2 Flow Rate FiO2 12/21/16 07:51 36.7 91 18 94 Room Air 12/21/16 07:40 Room Air 12/21/16 06:28 36.7 91 18 149/71 94 Room Air 12/20/16 23:35 Room Air 12/20/16 22:45 36.6 71 18 121/80 95 Room Air 12/20/16 19:29 36.8 71 18 136/77 96 Nasal Cannula 4.0 12/20/16 16:00 Room Air 12/20/16 15:25 36.7 83 18 134/62 96 Room Air 12/20/16 10:57 36.8 94 19 137/78 92 Room Air Assessment & Plan Assessment: POD #2, Rt TKA Plan: PT/ OT DVT proph- ASA D/C planning- Home w OPPT today As per medicine Inhouse Planning Pain Management: Toradol, Oxycontin, Morphine, PO Tylenol, Oxy IR DVT Prophylaxis: TEDs, SCDs, ASA Discharge Planning Discharge Planning: home with oppt Pain Management: Oxycontin, PO Tylenol, Oxy IR DVT Prophylaxis: TEDs, ASA Therapy: Physical Therapy, Occupational Therapy
[2016-12-21] MEDS ORDERED: ASPEC81 PO (09:16)
[2016-12-21] MEDS ORDERED: RXC5 PO (09:16)
[2016-12-21] MEDS ORDERED: OXYSR10 PO (09:16)
[2016-12-21] MEDS ORDERED: ACET-1138 PO (09:16)
--- NOTE | 2016-12-21 09:17 | Discharge Instructions ---
Discharge Instructions Admission Reason for Admission: Right Knee Degenerative Joint Disease Discharge Discharge Diagnosis / Problem: Rt TKA Discharge Goals Goal(s): Improve function Activity Recommendations Activity Limitations: as noted below . Instructions / Follow-Up Instructions / Follow-Up ACTIVITY RECOMMENDATIONS: SELF CARE INSTRUCTIONS AFTER TOTAL KNEE REPLACEMENT A. You may need to continue a physical therapy program after discharge from the hospital. There are several options available to you. Your doctor will assist you in selecting the best one for you. 1. An out-patient facility 2 to 3 times a week for therapy or home therapy. 2. Continue working on all exercises taught to you in the hospital. Your goals should be to increase bending of your knee to 90 degrees and beyond and to fully straighten your knee. B. You may progress at your own pace from walking with a walker or crutches to a cane; then to no assistive devices. C. Make walking a part of your daily routine. Be up as much as comfortable with rest periods throughout the day. Rest with leg elevation is very important. Use the ice wrap frequently for the first 3-4 weeks. D. There are no restrictions on activities. You may ride in a car, shop, participate in learning and development director and all social activities. E. Wear the long elastic stockings (YUMIKO hose) 20 hours a day for 2 weeks after surgery. They can be removed several times a day for laundering and for a bath. F. You may shower, no tub baths until cleared by your doctor. SPECIAL CARE INSTRUCTIONS: VERY IMPORTANT TO READ AND REVIEW A. There are a few signs you need to watch for after you are home. Call [facility] if you notice any of the followin. Increased severe knee pain. Some pain is expected especially when you exercise. 2. Increased swelling in your leg or knee; pain or swelling of the calf muscle in either lower leg. 3. Any fluid drainage from the incision. 4. Shortness of breath or chest pain. B. Please call [facility] at if you have any concerns or questions about your operation or recovery. The doctor or his nurse will return your call promptly. C. You must take antibiotics before dental work, bladder, bowel or other surgery. Your doctor will provide you with a permanent care to carry describing this precaution. IMPORTANT: * REMEMBER TO TAKE ASPIRIN, 81 MG, TWICE DAILY FOR 4 WEEKS UNLESS OTHERWISE DIRECTED. THIS IS YOUR BLOOD THINNER. * HIGH RISK PATIENTS MAY BE PRESCRIBED A STRONGER BLOOD THINNER. THIS WILL BE PROVIDED AT DISCHARGE. * CALL IF INCREASED PAIN, REDNESS, DRAINAGE OR FEVER GREATER THAT 101. * WEAR YUMIKO HOSE 20 HOURS PER DAY FOR 2 WEEKS. * YOU MAY HAVE A LARGE BAND-AID LIKE DRESSING (SILVERON). THIS WILL REMAIN ON YOUR INCISION FOR 7 DAYS, THEN CAN BE REMOVED. IF INCISION IS LEAKING THROUGH DRESSING, CALL THE OFFICE . FOLLOW UP VISIT: If appointment is not already scheduled: Please call [facility] to make a follow-up appointment for 2 weeks after your surgery at . Current Hospital Diet Patient's current hospital diet: Regular Diet Discharge Diet Recommended Diet: Regular Diet Procedures Procedures Performed: Right Total Knee Arthroplasty, Cemented Pending Studies Studies pending at discharge: no Laboratory Results Hemoglobin A1c Test 11/13/16 15:41 Range/Units Estimated Average Glucose 134 mg/dl Hemoglobin A1c 6.3 H 4.5-5.6 % Medical Emergencies . Who to Call and When: Medical Emergencies: If at any time you feel your situation is an emergency, please call [phone] immediately. . Non-Emergent Contact Non-Emergency issues call your: Primary Care Provider . "Provider Documentation" section prepared by Hal Deng. VTE Core Measure Inpt VTE Proph given/why not?: Other Anticoagulation (asa), T.E.D. Stockings, SCD's
--- NOTE | 2016-12-28 02:20 | DISCHARGE SUMMARY ---
DISCHARGE DIAGNOSIS: Degenerative joint disease, right knee. SECONDARY DIAGNOSES: Chronic obstructive pulmonary disease, questionable history of sleep apnea, osteoarthritis, obesity. CONSULTS: Dr. Osmani Edwards. COMPLICATIONS: None. PROCEDURES: Right total knee arthroplasty performed by Dr. Felix on 12/19/2016. BRIEF HISTORY: As dictated in the history and physical. HOSPITAL SUMMARY: The patient was admitted on the above-noted date and had the above-noted surgery performed which he tolerated well. On his first postoperative day, he was feeling well and pain was controlled. Calves were soft and nontender, neurovascularly intact. Capillary refill was less than 2 seconds, and dressings clean, dry and intact. Toes were mobile. Vital signs were stable, he was afebrile, and hemoglobin was 12.6. He was started on physical therapy protocol and continued on DVT prophylaxis and pain management and was continually seen by [facility] for medical management. By his second postoperative day, he continued to remain stable. He was feeling well and pain was controlled. Calves were soft and nontender, neurovascularly intact. Dressings were clean, dry and intact. Toes were mobile and vital signs were stable. He was progressing well with his physical therapy and remaining medically stable, and it was felt he could be discharged to home with outpatient PT planned. For further review, please see chart. LABORATORY AND X-RAY DATA: As per chart. DISCHARGE INSTRUCTIONS: The patient was discharged to home in satisfactory condition on 12/21/2016. DIET: Regular. ACTIVITY: Follow TK instruction sheets and special care instructions as written. Follow up with Dr. Felix in 2 weeks. The patient to call for appointment if one has not been made for you. DISCHARGE MEDICATIONS: Acetaminophen 1000 mg p.o. q. 8 hours, aspirin 81 mg p.o. b.i.d., OxyContin 10 mg p.o. q. 12 hours, oxycodone 5-10 mg p.o. q. 4 hours p.r.n. Resume taking Elavil 50 mg p.o. at bedtime, vitamin D3 one tab p.o. b.i.d., Relpax 40 mg p.o. as directed, famotidine 40 mg p.o. at bedtime, lovastatin 10 mg p.o. at bedtime, montelukast sodium 10 mg p.o. at bedtime, omeprazole 40 mg p.o. q.a.m., melatonin 15 mg p.o. at bedtime, Nasonex 2 sprays p.r.n. Stop taking diclofenac.
== END 2016-12-21 10:00 | disposition home or self-care (01) | DRG 470 ==
LOC: ENRESERVDT → ENRESERVTM → C.ACU 07:33 → C.3E 08:17
PROVIDERS: ADMIT Orthopaedic Surgery Sports Medicine; ATTEND Orthopaedic Surgery Sports Medicine
PROC: 0SRC0J9 Replacement of Right Knee Joint with Synthetic Substitute, Cemented, Open Approach (ICD-10-PCS; principal; 2016-12-19 10:15)
DX: M17.11 Unilateral primary osteoarthritis, right knee (principal); J44.9 Chronic obstructive pulmonary disease, unspecified; G47.30 Sleep apnea, unspecified; F17.200 Nicotine dependence, unspecified, uncomplicated; K21.9 Gastro-esophageal reflux disease without esophagitis; E78.00 Pure hypercholesterolemia, unspecified; E66.9 Obesity, unspecified; Z88.5 Allergy status to narcotic agent; Z88.0 Allergy status to penicillin